=== PATIENT | male | born 1965 | race Caucasian/White ===

== ENCOUNTER 2019-07-07 08:00 | Outpatient (CLI) | payer OTHER ==
[2019-07-07] MEDS ORDERED: BUSP5TAB2 PO (08:36)
== END 2019-07-07 23:59 | disposition home or self-care (01) ==
LOC: STAR 08:00
PROVIDERS: ATTEND Urology
DX: Z02.9 Encounter for administrative examinations, unspecified (principal)

== ENCOUNTER 2019-07-16 12:07 | Day surgery (SDC) | payer OTHER ==
[~2019-07-16] VITALS: Ht 182.9 cm; Wt 94.5 kg
[~2019-07-16 12:07] MED LIST: BUSP5TAB2 PO
[2019-07-16] MEDS ORDERED: LACTATED RINGERS 1,000 ML IV ONE (12:21)
[2019-07-16] MEDS ORDERED: ACETAMINOPHEN 500 MG TABLET PO STA (12:21)
[2019-07-16] MEDS ORDERED: GABAPENTIN 300 MG CAPSULE PO STA (12:21)
[2019-07-16 12:30] VITALS: BP 124/85
[2019-07-16] MEDS ORDERED: BUPIVACAINE/PF 0.5% ONE (12:47)
[2019-07-16] MEDS ORDERED: EPINEPHRINE 1 MG/ML, 1ML ONE (12:47)
[2019-07-16] MEDS ORDERED: KETOROLAC 30 MG/1 ML ONE (13:03)
[2019-07-16] MEDS ORDERED: FENTANYL PF 250 MCG/5ML ONE (13:03)
[2019-07-16] MEDS ORDERED: PROMETHAZINE 25 MG/ML, 1ML IV PRN (13:30)
[2019-07-16] MEDS ORDERED: MEPERIDINE/PF 25MG/ML,1ML IVPush PRN (13:30)
[2019-07-16] MEDS ORDERED: OXYcodone 5 MG/5 ML ORAL.SOL UDC PO PRN (13:30)
[2019-07-16] MEDS ORDERED: LABETALOL 5MG/ML, 20ML IV PRN (13:30)
[2019-07-16] MEDS ORDERED: FENTANYL PF 100 MCG/2ML IV PRN (13:30)
[2019-07-16] MEDS ORDERED: HALOPERIDOL 5 MG/ML IV PRN (13:30)
[2019-07-16] MEDS ORDERED: hydrALAzine 20 MG/ML, 1ML IV PRN (13:30)
[2019-07-16] MEDS ORDERED: HYDROmorphone 2 MG/ML, 1ML IVPush PRN (13:30)
[2019-07-16] MEDS ORDERED: PROPOFOL 10 MG/ML, 20ML ONE (13:59)
[2019-07-16] MEDS ORDERED: CEFAZOLIN 1,000 MG ONE (13:59)
[2019-07-16] MEDS ORDERED: DEXAMETHASONE 4 MG/ML, 1ML ONE (13:59)
[2019-07-16] MEDS ORDERED: ONDANSETRON 2MG/ML, 2ML ONE (13:59)
[2019-07-16] MEDS ORDERED: MEPERIDINE/PF 25MG/ML,1ML ONE (14:23)
== END 2019-07-16 16:24 | disposition home or self-care (01) ==
LOC: OUT 12:07
PROVIDERS: ATTEND Urology
DX: N43.40 Spermatocele of epididymis, unspecified (principal); Z30.2 Encounter for sterilization; Z72.89 Other problems related to lifestyle; Z79.899 Other long term (current) drug therapy; Z82.49 Family history of ischemic heart disease and other diseases of the circulatory system
CPT/HCPCS: 54840; 55250; 88302; 88304; C1760; J0171; J0690; J1100; J1885; J2175; J2405; J2704; J3010; J7120